=== PATIENT | female | born 1965 | race Caucasian/White ===

== ENCOUNTER 2021-03-30 11:24 | Outpatient (CLI) | payer OTHER ==
[2021-03-30 12:16] LABS: Bacteria,Urine 4+ /HPF (Negative); Bilirubin,Urine NEG (Negative); Blood,Urine SM (Negative); Color,Urine Yellow (Yellow); Mucus,Urine FEW /HPF; Protein,Urine <15 mg/dL mg/dL (Negative); Urobilinogen,Urine < 2.0 mg/dL (<2.0)
[2021-03-30 12:26] LABS: Alanine Aminotransferase 19 units/L (7-56); Albumin 4.3 g/dL (3.9-5); Blood Urea Nitrogen 11 mg/dL (7-17); Calcium 9.7 mg/dL (8.4-10.2); Chol/HDL Ratio 2.37 %; HDL Cholesterol 62 mg/dL (40-59); Hemolysis Index 6; LDL Cholesterol,Direct 81 mg/dL (50-130)
[2021-03-30 12:33] LABS: Basophils % (Auto) 0.5 % (0.0-1.8); Eosinophils # (Auto) 0.1 K/mm3 (0.0-0.4); Eosinophils % (Auto) 1.5 % (0.0-4.3); Hematocrit 38.6 % (30.3-42.9); Hemoglobin 12.6 gm/dl (10.1-14.3); Lymphocytes # (Auto) 3.1 K/mm3 (1.2-5.4); Lymphocytes % (Auto) 44.9 % (13.4-35.0); Mean Corpuscular HGB Conc 33 % (30-34); Mean Corpuscular Volume 88 fl (79-97); Monocytes # (Auto) 0.4 K/mm3 (0.0-0.8); Monocytes % (Auto) 5.7 % (0.0-7.3); Platelet Count 251 K/mm3 (140-440); Red Cell Distribution Width 13.2 % (13.2-15.2)
[2021-03-30 12:52] LABS: BUN/Creatinine Ratio 28
[2021-03-30 13:54] LABS: Creatinine,Urine 58.3 mg/dL (0.1-20.0)
[2021-03-30 13:59] LABS: Microalbumin/Creatinine Ratio 20.5 ug/mg
== END 2021-03-30 11:25 | disposition home or self-care (01) ==
LOC: LAB 11:24
PROVIDERS: ATTEND Internal Medicine
DX: E55.9 Vitamin D deficiency, unspecified (principal); Z13.29 Encounter for screening for other suspected endocrine disorder; Z00.00 Encounter for general adult medical examination without abnormal findings; E78.5 Hyperlipidemia, unspecified; E11.65 Type 2 diabetes mellitus with hyperglycemia
CPT/HCPCS: 36415; 80053; 80061; 81001; 82043; 82652; 83036; 84443; 85025; 87076; 87086; 87186

== ENCOUNTER 2022-02-22 10:08 | Outpatient (CLI) | payer OTHER ==
--- NOTE | 2022-02-23 06:55 | Ultrasound Report ---
ULTRASOUND RENAL INDICATION / CLINICAL INFORMATION: N39.0 URINARY TRACT INFECTION. COMPARISON: None available. FINDINGS: Right kidney measures 14.2 cm in craniocaudal dimension. Cortex is 1.5 cm. 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 Renal cortex is hyperechoic in dafne earance. No hydronephrosis or perinephric fluid present. Left kidney measures 12.3 cm in craniocaudal dimension and demonstrates mild hydronephrosis. Left hope al cortex is minimally hyperechoic. URINARY BLADDER: No significant abnormality. FREE FLUID: None. ADDITIONAL FINDINGS: None. IMPRESSION: 1. Mild left hydronephrosis. 2. Borderline to mild bilateral nephromegaly. Differential considerations are broad ranging from diab etic neuropathy to entity such as lymphoma, HIV nephropathy, leukemia, multiple myeloma, and amyloido sis. 3. Mild increase in bilateral renal cortical echotexture. This may reflect evidence of medical renal disease and is considered a nonspecific finding. Signer Name: Caden Lopez II, MD Signed: 02/23/2022 6:51 AM Workstation Name: [id number]
== END 2022-02-22 10:09 | disposition home or self-care (01) ==
LOC: US 10:08
PROVIDERS: ATTEND Internal Medicine
DX: N13.30 Unspecified hydronephrosis (principal); N26.1 Atrophy of kidney (terminal); N39.0 Urinary tract infection, site not specified
CPT/HCPCS: 76770